=== PATIENT | male | born 1960 | race Caucasian/White ===

== ENCOUNTER 2021-09-12 17:54 | Emergency (ER) | payer OTHER ==
[2021-09-12] MEDS ORDERED: Ketorolac 30 MG/ML SDV IM ONE (18:02)
== END 2021-09-12 18:30 | disposition home or self-care (01) ==
LOC: MW.ED 17:54
DX: S66.812A Strain of other specified muscles, fascia and tendons at wrist and hand level, left hand, initial encounter (principal); E11.9 Type 2 diabetes mellitus without complications; I10 Essential (primary) hypertension; Z79.84 Long term (current) use of oral hypoglycemic drugs; Z79.899 Other long term (current) drug therapy; V89.2XXA Person injured in unspecified motor-vehicle accident, traffic, initial encounter; Y92.410 Unspecified street and highway as the place of occurrence of the external cause
CPT/HCPCS: 99283